=== PATIENT | female | born 1960 | race Caucasian/White ===

== ENCOUNTER 2016-08-05 20:46 | Inpatient (IN) ==
[2016-08-05] MEDS ORDERED: NS 1,000 ML IV ONE (21:38)
[2016-08-05] MEDS ORDERED: MORPHINE IV ONE (21:55)
[2016-08-05] MEDS ORDERED: ZOFRAN IV ONE (21:57)
[2016-08-05 22:03] LABS: MANUAL DIFF NEEDED? NO
[2016-08-05 22:06] LABS: BASO% 0.3 % (0.0-0.8); HEMATOCRIT 40.4 % (37.0-47.0); HEMOGLOBIN 13.7 g/dL (12.0-16.0); IMM GRAN# 0.02 X1000 (0.0-0.04); IMM GRAN% 0.2 % (0.0-0.5); LYMPH# 2.53 X1000 (1.2-3.4); LYMPH% 21.1 % (20.5-51.1); MCH 30.9 PG (27-31); MCHC 33.9 g/dL (33-37); MCV 91.2 FL (81-99); MONO# 0.64 X1000 (0.11-0.59); MONO% 5.3 % (1.7-9.3); NEUT% 73.1 % (42.2-75.2); PLT 280 X1000 (130-400); RBC 4.43 XMIL (4.2-5.4)
--- NOTE | 2016-08-05 22:13 | PROVIDER DOCUMENTATION ---
This chart was entered by Tasneem White Scribe, acting as scribe for Luis Collado MD. HPI-Abdominal Pain/GI Problem - General Chief Complaint: Diarrhea Stated Complaint: C DIF Time Seen by Provider: 08/05/16 21:06 Source: patient - History of Present Illness-ABD Nature of Presenting Problems: 55 Y/O F presents to ED with GI problems. Pt was sent her to be an admitted by . Pt was diagnosed with C-diff last week Thursday with no improvement even with prescribed Medication. Pt was diagnosed with Chron's a month and a halg ago. States that she has BM's 4x a day and 1 month of low grade fever. Severity in ED: reports: moderate Timing: reports: still present Associated Symptoms: reports: diarrhea, nausea. denies: fatigue, headaches, vomiting, trouble walking Last BM: this evening Review of Systems - Adult - REVIEW OF SYSTEMS - ADULT Constitutional: denies: chills, fever Eyes: reports: no symptoms reported Ears, Nose, Mouth & Throat: reports: no symptoms reported Cardiovascular: denies: chest pain Respiratory: denies: cough, shortness of breath Gastrointestinal: reports: diarrhea, nausea. denies: abdominal pain, vomiting Genitourinary: reports: no symptoms reported Musculoskeletal: reports: no symptoms reported Integumentary: reports: no symptoms reported Neurological: reports: no symptoms reported Psychiatric: reports: no symptoms reported Endocrine: reports: no symptoms reported Hematologic/Lymphatic: reports: no symptoms reported Allergic/Immunologic: reports: no symptoms reported All Other Systems: Reviewed and Negative Past History - Adult - PAST MEDICAL HISTORY-ADULT Review of Records: reports: Old Records Reviewed, Nursing Assessment Review, Medications Reviewed, Social history reviewed & non-contributory. Physical Exam-General - PHYSICAL EXAM-ADULT Initial Vital Signs Reviewed: Yes - CONSTITUTIONAL General Appearance: alert, no apparent distress - EYES Eyes: PERRL/EOMI, pink conjunctivae - HEAD, EARS, NOSE, MOUTH & THROAT HENMT: normocephalic/atraumatic, moist mucous membranes, normal ENT inspection, TMs normal, pharynx normal - NECK Neck: full range of motion, supple, normal inspection - RESPIRATORY Respiratory: chest non-tender, lungs clear, normal breath sounds - CARDIOVASCULAR Cardiovascular: normal peripheral pulses, regular rate, rhythm - GASTROINTESTINAL (ABDOMEN) Abdominal Exam: non tender, soft - LYMPHATIC Lymphatic: no adenopathy - MUSCULOSKELETAL Back Exam: normal inspection, no CVA tenderness, no vertebral tenderness Extremity: normal range of motion, non-tender - SKIN Integumentary: normal color, normal turgor - NEUROLOGIC Neurologic: grossly normal - PSYCHIATRIC Psych/Mental Status: normal mood/affect, normal thought content, normal thought process, oriented x 3 Progress - PLAN OF CARE/RESULTS Progress/Plan/Lab Results: Vital Signs - 8 hr 08/05/16 21:02 Pulse Rate 73 Respiratory Rate 18 Blood Pressure 156/93 O2 Sat by Pulse Oximetry 95 Orders Category Date Time Status C DIFF TOXIN [STOOL] Stat Lab 08/05/16 21:54 Uncollected CBC WITH ELECTRONIC DIFF [HEME] Stat Lab 08/05/16 21:38 Uncollected CMP [COMPREHENSIVE METABOLIC PANEL] [CHEM] Stat Lab 08/05/16 21:38 Uncollected LIPASE [CHEM] Stat Lab 08/05/16 21:38 Uncollected 0.9% Sodium Chloride Inj [Ns] 1,000 ml Med 08/05/16 21:38 Active IV 999 mls/hr Lactobacillus Rhamnosus GG [Culturelle] Med 08/06/16 09:00 Ordered 1 each PO BID Metronidazole 500 mg/Ns [Flagyl 500 mg/Ns] Med 08/05/16 21:45 Ordered 500 mg in 100 ml IV Q6H Vancomycin [Vancocin] Med 08/06/16 02:00 Ordered 125 mg PO Q6HR Result Diagrams: 08/05/16 21:40 - CONSULTS/PCP/HOSPITALIST Notification #1 *Consult/PCP/Hospitalist*: Time Discussed: 21:56 Reason/Comments: Admit Consult Disposition: Admit (Admit Accepted.) Departure - Departure Date of Disposition Decision: 08/05/16 Time of Disposition Decision: 22:13 DIAGNOSIS: C. difficile colitis Disposition: ADMITTED INPATIENT 09 Certified Medical Emergency: Emergent Condition: Good Referrals and Follow-Ups: Raya Molina MD [Primary Care Provider] - - Critical Care Note This patient required my direct & personal management of CC.: No This chart was documented by the indicated scribe, (Tasneem White Scribe) and accurately reflects the services I performed and decisions made by me, Luis Collado MD, as attested by the provider's signature.
[2016-08-05 22:25] LABS: AGAP 15; ALBUMIN 4.1 g/dL (3.5-5.0); ALKALINE PHOSPHATASE 58 U/L (32-104); BUN 11 mg/dL (8-22); CALCIUM 9.3 mg/dL (8.8-10.2); CHLORIDE 101 mmol/L (98-107); COSMO 282; GOT 10 U/L (10-30); GPT 12 U/L (10-36); LIPASE 23 U/L (13-60); POTASSIUM 3.9 mmol/L (3.5-5.1); SODIUM 142 mmol/L (136-145); TCO2 26 mmol/L (25-35); TOTAL BILIRUBIN 0.24 mg/dL (0.20-1.00); TOTAL PROTEIN 6.3 g/dL (6.3-8.3)
[2016-08-05] MEDS: FLAGYL 500 MG/NS 500 MG/100 ML IVPB IV SCH (22:25)
--- NOTE | 2016-08-05 22:44 | HISTORY AND PHYSICAL ---
CHIEF COMPLAINT: Diarrhea. HISTORY OF PRESENTING ILLNESS: A 55-year-old female, recent diagnosis of Crohn's. Apparently, had recent stool studies done by pack master Dr. Molina, which came back C. difficile positive. Subsequently, she was requested to go to the emergency department for admission. Patient states that she has been having persistent diarrhea for months to years, and recently she had a colonoscopy, which did show that she had Crohn's. Due to her presenting symptoms, the patient will need admission for further management. At the time of my examination, she had denied any headache, fever, chills, chest pain, shortness of breath, hemoptysis, or weight changes, but complained of persistent severe diarrhea. PAST MEDICAL HISTORY: Crohn's. PAST SURGICAL HISTORY: Cholecystectomy. ALLERGIES: Sulfa. CURRENT MEDICATIONS: As listed in the MAR. SOCIAL HISTORY: Smoking a pack of cigarettes for the past 4 years. Admits to social alcohol use. Denies any illicit drug use. FAMILY HISTORY: No history of coronary disease. REVIEW OF SYSTEMS: Twelve point review of systems is as in HPI. Other systems negative. PHYSICAL EXAMINATION: GENERAL: Cooperative, friendly female. She is resting comfortably now. VITAL SIGNS: Pulse 72, respiration 18, blood pressure 156/93. She is saturating 95%. HEENT: Atraumatic, normocephalic. Extraocular movements intact. PERRLA. NECK: Supple. CHEST: Clear to auscultation. CARDIOVASCULAR: Regular rhythm. ABDOMEN: Soft. Positive bowel sounds. EXTREMITIES: No edema. NEUROLOGIC: She is awake, alert, oriented x3. GENITOURINARY: No bladder distention. SKIN: Warm. LABORATORIES AND STUDIES: WBC 12.0, hemoglobin 13.7, hematocrit 40.4, platelets 280,000. ASSESSMENT: A 55-year-old female with a history of Crohn's, who was sent to the emergency department by her pack master for admission for further management of C. difficile colitis. 1. Diarrhea. 2. C. difficile colitis. 3. History of Crohn's. PLAN: 1. We will admit patient to medical floor. 2. We will keep patient n.p.o. 3. Start patient on IV Flagyl, and possibly then p.o. 4. We will consult Gastroenterology. 5. Will put patient on deep venous thrombosis prophylaxis with sequential compression devices. 6. We will continue to follow and reassess. cc: Yoni Escobedo MD
[2016-08-05] MEDS: VANCOCIN PO SCH (23:15)
[2016-08-06] MEDS ORDERED: ZOFRAN IV PRN (00:45)
[2016-08-06] MEDS: NS 1,000 ML IV SCH ×2 (01:25→13:45)
[2016-08-06] MEDS: FLAGYL 500 MG/NS 500 MG/100 ML IVPB IV SCH ×4 (03:15→21:14)
[2016-08-06] MEDS: VANCOCIN PO SCH ×3 (05:26→21:14)
[2016-08-06 06:41] LABS: MANUAL DIFF NEEDED? NO
[2016-08-06 06:51] LABS: BASO% 0.4 % (0.0-0.8); EOS# 0.09 X1000 (0.0-0.7); EOS% 0.8 % (0.0-10.0); HEMATOCRIT 35.7 % (37.0-47.0); HEMOGLOBIN 11.8 g/dL (12.0-16.0); LYMPH# 3.47 X1000 (1.2-3.4); LYMPH% 32.6 % (20.5-51.1); MCHC 33.1 g/dL (33-37); MCV 93.7 FL (81-99); MONO# 0.72 X1000 (0.11-0.59); MONO% 6.8 % (1.7-9.3); NEUT% 59.4 % (42.2-75.2); PLT 240 X1000 (130-400); RBC 3.81 XMIL (4.2-5.4)
[2016-08-06 07:08] LABS: AGAP 10; BUN 13 mg/dL (8-22); CALCIUM 7.9 mg/dL (8.8-10.2); CHLORIDE 106 mmol/L (98-107); COSMO 285; POTASSIUM 3.5 mmol/L (3.5-5.1); SODIUM 143 mmol/L (136-145); TCO2 27 mmol/L (25-35)
[2016-08-06] MEDS: CULTURELLE PO SCH ×2 (10:30→21:14)
--- NOTE | 2016-08-06 16:46 | PROGRESS NOTE ---
DATE: 08/06/2016 SUBJECTIVE: Patient reports feeling fine. Not nauseated, and from yesterday to today, she had yesterday 4 bowel movements and today only 1. No fever or chill reported. No abdominal pain. OBJECTIVE: Vital Signs: Temperature 97.8 degrees, heart rate 64, respiratory rate 20, blood pressure 134/85, O2 saturation 94% on room air. General Examination: This is a 55-year-old, female lying in bed, in no acute distress. HEENT: Head is normocephalic and atraumatic. Anicteric sclerae and pale conjunctivae. Mucous membranes moist. Neck: Supple. No JVD noted. No carotid bruits. No lymphadenopathy. No thyromegaly. Cardiovascular: S1, S2 heard. No murmurs, gallops, or rubs. Regular rate and rhythm. Respiratory: Clear bilaterally to auscultation. No work of breathing or using accessory muscles. Abdomen: Soft, nontender to palpation. Bowel sounds present. No organomegaly. Extremities: No clubbing, cyanosis, or edema. Peripheral pulses present in both legs. Neurological: Patient is alert and oriented x3. Able to move 4 extremities. Cranial nerves 2-12 grossly normal. LABORATORY DATA: Reviewed. ASSESSMENT: 1. Diarrhea secondary to Clostridium difficile colitis. 2. History of Crohn disease, recently diagnosed. PLAN: Patient has been admitted to the hospital because of a C. difficile colitis. Clinically this patient is responding to the treatment which is Flagyl and vancomycin oral. Now clinically he is improving because now she had 1 bowel movement. At this time, we are going to continue with the same management. If tomorrow the patient does not have any bowel movement and she is tolerating p.o. medications and food, we may let her go. cc: Linus Nascimento MD
[2016-08-06] MEDS: CARAFATE PO SCH (21:14)
[2016-08-06] MEDS: DEPAKOTE PO SCH (21:14)
[2016-08-06] MEDS: WELLBUTRIN SR PO SCH (21:29)
[2016-08-07] MEDS: NS 1,000 ML IV SCH ×5 (01:30→14:08)
[2016-08-07] MEDS: FLAGYL 500 MG/NS 500 MG/100 ML IVPB IV SCH ×4 (03:30→23:02)
[2016-08-07] MEDS: VANCOCIN PO SCH ×5 (03:30→23:01)
--- NOTE | 2016-08-07 06:11 | CONSULTATION ---
DATE OF CONSULTATION: 08/06/2016 REFERRING PHYSICIAN: Linus Nascimento M.D. INDICATION FOR CONSULTATION: 1. Diarrhea. 2. C. difficile. HISTORY OF PRESENT ILLNESS: The patient is a 55-year-old, white female who is followed in our clinic. She has Crohn's disease. She recently presented with greater than 10- 15 watery bowel movements per day. Her stool studies were positive for C. difficile toxin per her PCP. She was placed on oral Flagyl and a probiotic. However, she continued to have severe abdominal cramping, nausea and more than 10 bowel movements per day after 3 days of oral Flagyl. She presented to the emergency room with decreased p.o. intake, nausea, diarrhea and mild dehydration. From a GI perspective, she has had diarrhea for years that was 1-2 bowel movements per day. She recently underwent a colonoscopy that was remarkable for ileal colitis. Her biopsies are consistent with Crohn's disease. She denies chest pain, shortness of breath, vomiting or headache. She notes mild abdominal discomfort that has persisted. Overnight, she was placed on IV Flagyl and oral vancomycin. Her stool frequency has decreased for more than 10 bowel movements per day to 3. However, she continues to have watery diarrhea with each time she urinates. She reports that she is hungry today for the first time. PAST MEDICAL HISTORY: 1. Crohn's. 2. C. difficile colitis. 3. Gastroesophageal reflux disease. 4. Gastritis. 5. Hiatal hernia. 6. Gastric polyps. 7. Ileal colitis consistent with Crohn's disease. 8. Possible irritable bowel syndrome. 9. Vitamin B12 deficiency. 10. Vitamin D deficiency. PAST SURGICAL HISTORY: Cholecystectomy. MEDICATION ALLERGIES: Sulfa. HOME MEDICATIONS: 1. Carafate. 2. Prednisone. 3. Omeprazole. 4. Duloxetine. 5. Depakote. 6. Bupropion. SOCIAL HISTORY: Remarkable in that she has smoked 1 pack of cigarettes for the last 4 days. She uses alcohol on a social basis. She denies illicit drug use. FAMILY HISTORY: Negative for coronary artery disease and colon cancer. PHYSICAL EXAMINATION: GENERAL: On exam, she is in no acute distress. Vital Signs: Remarkable for a blood pressure of 134/85, pulse 64, respiration 20, temperature of 97.8 degrees. HEENT: Her conjunctiva are pink. Her sclerae are anicteric and her oropharyngeal mucosa membranes are unremarkable. Lungs: Clear to auscultation with normal respiratory effort. Cardiovascular: Exam reveals regular rate and rhythm with no murmurs, gallops, or rubs. Abdominal: Exam reveals normoactive bowel sounds. The abdomen is soft, with minimal abdominal tenderness. Extremities: Bilaterally are negative for cyanosis, clubbing, or edema. OBJECTIVE DATA: Reveals a hemoglobin of 11.8 with hematocrit of 35.7, and a white count of 10.64. This is an interval improvement from a white count of 12,0 on admission. She has 240,000 platelets. Sodium is 143, potassium 3.5, chloride 106, CO2 27, BUN 13, creatinine 0.7, and a glucose of 100 with a calcium of 7.9. On July 01, her vitamin B12 was 216, vitamin D is 17.9, and folic acid 10.7. Her TSH on 08/06/2016 is 3.37. IMPRESSION: 1. C. difficile colitis. 2. Crohn's disease. 3. Vitamin B12 deficiency. 4. Vitamin D deficiency. RECOMMENDATION: 1. Continue vancomycin and Flagyl. 2. I would advance her diet. 3. Because the patient continues to have tenesmus despite the decreasing episodes of diarrhea, I do not think she is ready for discharge tomorrow. She may need an additional 24 hours of IV fluids and IV antibiotics. I will consider additional anti-inflammatory treatment pending her test results. Continue prednisone for now. 4. From a Crohn's disease standpoint, I will check a CRP in the morning. 5. I will also check a CBC as her hemoglobin has dropped slightly over the last 24 hours. 6. I anticipate that she should be able to be discharged no later than Thursday barring any other unforeseen complications. cc: MD Linus Tineo MD MTDD
[2016-08-07] MEDS: CARAFATE PO SCH ×4 (06:19→23:01)
[2016-08-07 06:36] LABS: MANUAL DIFF NEEDED? NO
[2016-08-07 06:46] LABS: BASO% 0.3 % (0.0-0.8); EOS# 0.14 X1000 (0.0-0.7); EOS% 1.3 % (0.0-10.0); HEMATOCRIT 38.2 % (37.0-47.0); HEMOGLOBIN 12.7 g/dL (12.0-16.0); IMM GRAN# 0.02 X1000 (0.0-0.04); IMM GRAN% 0.2 % (0.0-0.5); LYMPH# 2.26 X1000 (1.2-3.4); MCH 31.1 PG (27-31); MCHC 33.2 g/dL (33-37); MCV 93.6 FL (81-99); MONO% 5.6 % (1.7-9.3); MPV 10.9 FL (7.4-10.4); NEUT% 71.6 % (42.2-75.2); PLT 240 X1000 (130-400); RBC 4.08 XMIL (4.2-5.4)
[2016-08-07 07:09] LABS: AGAP 11; BUN 9 mg/dL (8-22); CALCIUM 8.5 mg/dL (8.8-10.2); CHLORIDE 103 mmol/L (98-107); COSMO 283; POTASSIUM 3.6 mmol/L (3.5-5.1); SODIUM 142 mmol/L (136-145); TCO2 28 mmol/L (25-35)
[2016-08-07] MEDS: DEPAKOTE PO SCH ×2 (08:20→23:01)
[2016-08-07] MEDS: PREDNISONE PO SCH (08:21)
[2016-08-07] MEDS: WELLBUTRIN SR PO SCH ×2 (08:21→23:01)
[2016-08-07] MEDS: PRILOSEC PO SCH (08:21)
[2016-08-07] MEDS: CULTURELLE PO SCH ×2 (08:21→23:01)
[2016-08-07] MEDS: CYMBALTA PO SCH (08:21)
[2016-08-07] MEDS ORDERED: CARAFATE PO SCH (09:00)
--- NOTE | 2016-08-07 17:09 | PROGRESS NOTE ---
DATE: 08/07/2016 SUBJECTIVE: The patient is still complaining of diarrhea. She says she has had 5 bowel movements today. Only thing recorded was. OBJECTIVE: Vital signs: Blood pressure 113/60, heart rate 67, respiratory rate 18, temperature 98.2 degrees. Cardiovascular: Regular rate and rhythm. Pulmonary: Bilateral breath sounds. Clear to auscultation. GI: Soft, nontender, nondistended. Bowel sounds are positive. LABORATORY DATA: White count 10, hemoglobin and hematocrit 12 and 38, platelets of 240,000. CMP was normal. PROBLEM LIST: 1. Clostridium difficile colitis. We will continue vancomycin and Flagyl and follow closely. 2. Crohn's, recent diagnosis. The patient is uncertain if she truly has Crohn's. We are getting treatment. Her biopsies showed active colitis with crypt abscesses, that was from June, which could be inflammatory bowel disease. But at this point, I will defer treatment plan per Dr. Molina. Patient is already on prednisone which has been decreased because of her infection. We are just going to give her some Asacol. That is probably not going to cause any issues so we will continue that and follow closely. 3. Disposition. When clinically stabilized likely home, hopefully within the next 24 hours. cc: Ko Hyatt MD
[2016-08-07] MEDS: ASACOL HD PO SCH (19:04)
--- NOTE | 2016-08-07 20:37 | PROGRESS NOTE ---
DATE: 08/07/2016 SUBJECTIVE: The patient states that she feels better today. She reports only 1 episode of abdominal pain overnight. However, she has had 5 large volume watery diarrhea stools. She notes that her stool frequency is actually worse than when she was at home, but her C. difficile toxin has returned negative. She continues to have white blood cells in her stool as noted by positive lactoferrin. Her appetite is slightly better. She was placed on Asacol by the primary team for her acute colitis noted on endoscopy. OBJECTIVE: Vital signs: On exam, her blood pressure is 140/72, pulse 71, respiration 20, temperature of 98.3 degrees. Abdomen: Soft and nontender. LABORATORY DATA: Reveals a hemoglobin of 12.7, hematocrit of 38.2 and white count of 10.78 with 240,000 platelets. Sodium is 142, potassium 3.6, chloride 103, CO2 28, BUN 9, creatinine 0.7 with a glucose 113. Calcium is 8.5. Her iron is 38 with a ferritin of 41. Her CRP is 3.99. IMPRESSION: 1. Clostridium difficile colitis. 2. Ileocolitis consistent with Crohn's disease on endoscopy. 3. Iron deficiency anemia. 4. Vitamin B12 deficiency. 5. Vitamin D deficiency. 6. Continue vancomycin and Flagyl. 7. Continue gastrointestinal soft diet. 8. Consider repeat Clostridium difficile toxin if her diarrhea continues to worsen. 9. Continue Culturelle. 10. The patient had evidence of ileocolitis on endoscopy and on biopsy. The Asacol will only address the colonic issues. It does not address the small bowel lesions. However, the patient is on prednisone and is unable to start anti TNF therapy until her infection resolves. Therefore, it is reasonable to continue the Asacol pending resolution of her infection. 11. If the patient's crampy abdominal pain persists, one can consider a course of Levsin 0.125 mg sublingual. 12. Continue prednisone at 30 mg per day at this time. We will continue her taper next week, reducing her dose to 25 mg per day. 13. Continue Anusol HC per rectum twice a day for 7 days and then stop. 14. Continue Carafate for the gastroenteritis for a total of 12 weeks. cc: MD Ko Tineo MD MTDD
[2016-08-07] MEDS: ANUSOL-HC CREAM PR SCH (23:01)
[2016-08-08] MEDS: NS 1,000 ML IV SCH ×3 (02:26→15:40)
[2016-08-08] MEDS: FLAGYL 500 MG/NS 500 MG/100 ML IVPB IV SCH ×4 (03:46→22:39)
[2016-08-08] MEDS: VANCOCIN PO SCH ×4 (03:46→22:39)
[2016-08-08] MEDS: CARAFATE PO SCH ×4 (06:32→22:39)
[2016-08-08 07:36] LABS: AGAP 11; BUN 13 mg/dL (8-22); CHLORIDE 104 mmol/L (98-107); COSMO 285; POTASSIUM 3.6 mmol/L (3.5-5.1); SODIUM 143 mmol/L (136-145); TCO2 28 mmol/L (25-35)
[2016-08-08] MEDS: WELLBUTRIN SR PO SCH ×3 (07:55→22:39)
[2016-08-08] MEDS: DEPAKOTE PO SCH ×3 (07:55→22:39)
[2016-08-08] MEDS: PREDNISONE PO SCH ×2 (07:55→07:59)
[2016-08-08] MEDS: PRILOSEC PO SCH ×2 (07:55→08:00)
[2016-08-08] MEDS: ANUSOL-HC CREAM PR SCH ×3 (07:55→22:38)
[2016-08-08] MEDS: ASACOL HD PO SCH ×4 (07:55→22:39)
[2016-08-08] MEDS: CYMBALTA PO SCH ×2 (07:55→07:59)
[2016-08-08] MEDS: CULTURELLE PO SCH ×3 (07:55→22:39)
--- NOTE | 2016-08-08 14:06 | PROGRESS NOTE ---
DATE: 08/08/2016 SUBJECTIVE: The patient has no focal complaints. OBJECTIVE: Blood pressure 146/86, heart rate 74, respiratory rate 16, temperature 98.3 degrees, 98% on room air.Cardiovascular: Regular rate and rhythm. Pulmonary: Bilateral breath sounds. Clear to auscultation. GI: Soft, nontender, nondistended. Bowel sounds are positive. LABORATORY DATA: CMP is normal today. PROBLEM LIST: 1. Clostridium difficile colitis. Clinically, she is improving finally on vancomycin and Flagyl. Probably anticipate discharging her on vancomycin for a total of 2 weeks. She is on day 4 of treatment. 2. Crohn's exacerbation. She is on prednisone. I started Asacol yesterday. I have noted Dr. Molina's notation that she has ileal colitis. I was under the impression she had colonic involvement but we are going to leave her on Asacol right now just because she is not a candidate for immune modulating therapy with her active infection. DISPOSITION: Anticipate discharge tomorrow if stable. cc: Ko Hyatt MD
--- NOTE | 2016-08-08 16:30 | PROGRESS NOTE ---
DATE: 08/08/2016 SUBJECTIVE: The patient states that she has only had 2 bowel movements today. The nocturnal diarrhea has resolved. She reports less abdominal cramps, and notes an increase in her appetite. She just laid down to sleep and therefore no exam was performed. VITALS: Remained stable with a blood pressure of 146/86, pulse 74, respirations 16, temperature of 98.3. OBJECTIVE LAB DATA: She is remarkable for sodium of 143, potassium 3.6, chloride 104, CO2 of 28, BUN 13, creatinine 0.6 with a glucose of 93 and a calcium of 8.0. RECOMMENDATION: 1. Continue antibiotics for C. difficile colitis. 2. Continue Asacol for the acute colitis. Please note that once her infection is cleared, we will transition her to either Humira or Remicade therapy. 3. Continue prednisone, which I will taper as an outpatient. 4. Continue omeprazole. 5. Continue Carafate. 6. Continue Culturelle. 7. Once her stools have become formed, I will begin the steroid taper. 8. The patient has appointment in our office on August 25. We will plan to see her at that time. When she goes home, I ask that she call our office within 1-2 weeks. cc: MD Ko Tieno MD MTDD
[2016-08-09] MEDS: FLAGYL 500 MG/NS 500 MG/100 ML IVPB IV SCH ×4 (04:05→22:14)
[2016-08-09] MEDS: VANCOCIN PO SCH ×3 (04:05→17:42)
[2016-08-09] MEDS: CARAFATE PO SCH ×2 (06:09→10:29)
[2016-08-09 07:01] LABS: HEMATOCRIT 36.2 % (37.0-47.0); MCH 31.3 PG (27-31); MCHC 33.1 g/dL (33-37); MCV 94.3 FL (81-99); MPV 10.8 FL (7.4-10.4); RBC 3.84 XMIL (4.2-5.4)
[2016-08-09 07:13] LABS: AGAP 12; BUN 10 mg/dL (8-22); CALCIUM 8.2 mg/dL (8.8-10.2); CHLORIDE 104 mmol/L (98-107); COSMO 284; POTASSIUM 3.4 mmol/L (3.5-5.1); SODIUM 143 mmol/L (136-145); TCO2 27 mmol/L (25-35)
[2016-08-09] MEDS: WELLBUTRIN SR PO SCH ×2 (08:16→22:14)
[2016-08-09] MEDS: CYMBALTA PO SCH (08:16)
[2016-08-09] MEDS: DEPAKOTE PO SCH ×2 (08:16→22:14)
[2016-08-09] MEDS: PRILOSEC PO SCH (08:16)
[2016-08-09] MEDS: ASACOL HD PO SCH ×3 (08:16→17:42)
[2016-08-09] MEDS: ANUSOL-HC CREAM PR SCH ×2 (08:17→22:14)
[2016-08-09] MEDS: PREDNISONE PO SCH (08:17)
[2016-08-09] MEDS: CULTURELLE PO SCH ×2 (08:17→22:14)
[2016-08-09] MEDS: NS 1,000 ML IV SCH (10:29)
[2016-08-09] MEDS ORDERED: KLOR-CON PO ONE (10:48)
--- NOTE | 2016-08-09 15:02 | PROGRESS NOTE ---
DATE: 08/09/2016 SUBJECTIVE: The patient is still having some diarrhea, but she is overall improved. OBJECTIVE: Vital Signs: Blood pressure 137/82, heart rate 71, respiratory rate 18, temperature 98.1 degrees, satting 98% on room air. Cardiovascular: Regular rate and rhythm. Pulmonary: Bilateral breath sounds. Clear to auscultation. GI: Soft, nontender, nondistended. Bowel sounds are positive. LABORATORY DATA: Potassium 3.4, but white count is normal. PROBLEMS: 1. Clostridium difficile colitis. We will increase her vancomycin and continue Flagyl and follow. 2. Crohn exacerbation. She is on prednisone and Asacol for the time being. I am going to add a little bit of cholestyramine and stop her Carafate just from this standpoint I am not sure if this may be contributing somewhat to her diarrhea. 3. Hypokalemia. Will supplement and follow. DISPOSITION: Hopefully can discharge tomorrow if stabilized. cc: Ko Hyatt MD
[2016-08-09] MEDS: QUESTRAN PO SCH ×2 (15:59→22:14)
[2016-08-10] MEDS: FLAGYL 500 MG/NS 500 MG/100 ML IVPB IV SCH ×4 (04:34→21:19)
[2016-08-10 07:06] LABS: AGAP 11; BUN 10 mg/dL (8-22); CALCIUM 8.4 mg/dL (8.8-10.2); CHLORIDE 102 mmol/L (98-107); COSMO 280; POTASSIUM 3.6 mmol/L (3.5-5.1); SODIUM 141 mmol/L (136-145); TCO2 28 mmol/L (25-35)
[2016-08-10] MEDS: PREDNISONE PO SCH (09:26)
[2016-08-10] MEDS: PRILOSEC PO SCH (09:26)
[2016-08-10] MEDS: VANCOCIN PO SCH ×3 (09:26→17:38)
[2016-08-10] MEDS: CULTURELLE PO SCH ×2 (09:26→17:38)
[2016-08-10] MEDS: WELLBUTRIN SR PO SCH ×2 (09:26→21:19)
[2016-08-10] MEDS: QUESTRAN PO SCH ×2 (09:26→09:29)
[2016-08-10] MEDS: DEPAKOTE PO SCH ×2 (09:26→21:19)
[2016-08-10] MEDS: ASACOL HD PO SCH ×3 (09:26→17:38)
[2016-08-10] MEDS: CYMBALTA PO SCH (09:26)
[2016-08-10] MEDS: ANUSOL-HC CREAM PR SCH ×2 (09:27→21:18)
[2016-08-10] MEDS: DIFICID PO SCH ×2 (17:38→21:18)
--- NOTE | 2016-08-10 18:29 | PROGRESS NOTE ---
DATE: 08/10/2016 SUBJECTIVE: The patient has no focal complaints. OBJECTIVE: Vital Signs: Blood pressure 144/77, heart rate of 80, respiratory rate 18, temperature 98 degrees. Cardiovascular: Regular rate and rhythm. Pulmonary: Bilateral breath sounds. Clear to auscultation. Gastrointestinal: Soft, nontender, nondistended. Bowel sounds are positive. LABORATORY DATA: Basic was normal. PROBLEM LIST: 1. Clostridium difficile colitis. She is still having a lot of diarrhea, probably 6 episodes yesterday, two today. I am going to add Dificid on top of her vancomycin and Flagyl. Probably get Infectious Disease consult and follow. 2. Crohn's exacerbation. She is on Asacol and prednisone. Continue to follow. I am not sure, we may want to bump up her prednisone a little bit. We will see what Dr. Raya Molina says tomorrow. 3. Anxiety and depression. Appears to be stable. 4. Hypokalemia. Has resolved. We will continue to monitor. Hopefully, can discharge tomorrow if she stabilizes. She is not tolerating the Questran, so I am going to stop that for right now. cc: Ko Hyatt MD
[2016-08-11] MEDS: FLAGYL 500 MG/NS 500 MG/100 ML IVPB IV SCH ×2 (04:42→09:24)
[2016-08-11 07:20] LABS: HEMATOCRIT 40.6 % (37.0-47.0); HEMOGLOBIN 13.5 g/dL (12.0-16.0); MCH 30.8 PG (27-31); MCHC 33.3 g/dL (33-37); MCV 92.5 FL (81-99); RBC 4.39 XMIL (4.2-5.4)
[2016-08-11 07:21] LABS: AGAP 14; BUN 13 mg/dL (8-22); CALCIUM 9.1 mg/dL (8.8-10.2); CHLORIDE 100 mmol/L (98-107); COSMO 285; POTASSIUM 4.1 mmol/L (3.5-5.1); SODIUM 143 mmol/L (136-145); TCO2 29 mmol/L (25-35)
[2016-08-11] MEDS: ASACOL HD PO SCH ×3 (08:35→16:19)
[2016-08-11] MEDS: ANUSOL-HC CREAM PR SCH ×2 (08:35→20:53)
[2016-08-11] MEDS: CULTURELLE PO SCH ×3 (08:36→16:19)
[2016-08-11] MEDS: DIFICID PO SCH (08:36)
[2016-08-11] MEDS: DEPAKOTE PO SCH ×2 (08:36→20:52)
[2016-08-11] MEDS: CYMBALTA PO SCH (08:36)
[2016-08-11] MEDS: WELLBUTRIN SR PO SCH ×2 (08:37→20:52)
[2016-08-11] MEDS: PREDNISONE PO SCH (08:37)
[2016-08-11] MEDS: PRILOSEC PO SCH (08:37)
[2016-08-11] MEDS: VANCOCIN PO SCH ×3 (09:24→16:19)
[2016-08-11] MEDS ORDERED: ENTOCORT EC PO ONE (11:45)
[2016-08-11] MEDS ORDERED: PREDNISONE PO ONE (11:46)
[2016-08-11] MEDS ORDERED: PREDNISONE PO SCH (11:47)
[2016-08-11] MEDS ORDERED: SOLU-MEDROL IV SCH (23:45)
--- NOTE | 2016-08-12 03:37 | PROGRESS NOTE ---
DATE: 08/11/2016 SUBJECTIVE: The patient states that she is continuing to have large volume and watery diarrhea. She actually was incontinent of stool when she coughed while she was in the shower. She notes worsening abdominal cramps and discomfort. She denies nausea with vomiting, but reports new epigastric discomfort or dyspepsia. She is concerned because she continues to have diarrhea. She notes that her dose of prednisone was recently increased from 25 mg per day to 40 mg per day. She is currently receiving Dificid, vancomycin, and Flagyl. She was evaluated by Dr. Elver Rutledge, who feels that there is currently no evidence of a C. difficile infection based on the fact that her antigen and toxins are negative, although she was antigen positive in the past, with a preceding negative stool antigen. Her endoscopy was remarkable for ileal and colonic ulcerations, consistent with Crohn's disease. PHYSICAL EXAMINATION: General: She is in no acute distress. Vital Signs: Her blood pressure is 122/69, pulse 86, respirations 16, temperature of 98.2 degrees. HEENT: Negative. Lungs: Lungs are clear to auscultation, with normal respiratory effort. Cardiovascular: Regular rate and rhythm, with no murmurs, gallops, or rubs. Abdominal: Mild diffuse tenderness, with no rebound or guarding. She has normoactive bowel sounds. OBJECTIVE DATA: Hemoglobin of 13.5, with hematocrit of 40.6, and white count of 9.82. She has 282,000 platelets. Sodium 143, potassium 4.1, chloride 100, CO2 29, BUN 13, creatinine 0.7, with a glucose of 98. Calcium is 9.1, and CRP is 3.16. IMPRESSION: 1. Probable C. difficile colitis, status post treatment with eradication. Her stool studies are now negative. 2. Enterocolitis, consistent with Crohn's disease. 3. Refractory diarrhea. 4. Diffuse abdominal discomfort. 5. Gastroesophageal reflux disease. 6. Erosive gastroduodenitis on previous esophagogastroduodenoscopy. 7. Leukocytosis on admission, resolved. 8. Iron deficiency anemia. RECOMMENDATIONS: 1. Because of the failure of the patient to improve, I will obtain a CT scan of the abdomen and pelvis with IV and oral contrast. 2. Although the patient does not have positive toxins now, she has had a persistent leukocytosis that resolved with antibiotics. Therefore, I would complete a 10-day course of antibiotics and stop. Her fecal calprotectin was consistent with acute inflammatory changes, but her stool pH was within normal limits. 3. The patient's fecal calprotectin and biopsies are still consistent with Crohn's disease. However, we are still unable to rule out noninflammatory causes. Her fecal calprotectin is 72. 4. The patient has had minimal response to antibiotics. She has had minimal response to increasing her prednisone and adding Dificid to Flagyl and vancomycin. Although her fecal calprotectin is elevated, it may be reasonable to consider holding all therapies, with the exception of the prednisone and Asacol, and reassessing. This will depend on the results on the CT scan. 5. Continue the Anusol HC suppository twice a day for her inflamed hemorrhoids. 6. Continue Prilosec for the treatment of her gastroenteritis. 7. Additional recommendations to follow based on the results of her CT scan. cc: MD Ko Tineo MD
--- NOTE | 2016-08-12 08:51 | Diag Imaging Result Doc PS360 ---
EXAM: ABDOMEN/PELVIS W/CONTRAST HISTORY: refractory diarrhea, abd cramps TECHNIQUE: CT of the abdomen with intravenous and oral contrast and dose reduction (clarity.) COMMENT: The appearance of the visualized portions of the lungs is unremarkable and unchanged since 10/23/2015. There is no evidence of abdominal aortic aneurysm. Some fullness of the collecting systems is present in both kidneys particularly the upper pole calyces and there is at least one stone visible in the left upper pole measuring 5 mm in diameter. There is been cholecystectomy. The spleen and adrenal glands are within normal limits. The pancreas is unremarkable. The liver is within normal limits otherwise. There is no evidence of significant adenopathy. The small bowel is not distended and the stomach is not distended. Some fluid is present with gas throughout the colon. CT of the pelvis with intravenous and oral contrast: The appendix is not distended. There is fluid and some fecal debris in the rectum. The urinary bladder is not distended. There is an apparent 17 mm right ovarian cyst. There is no significant free fluid. There are degenerative disc changes at the L5-S1 level and there may be some foraminal stenosis on the left this level. IMPRESSION: 1. Fluid in the colon which would be consistent with enterocolitis. 2. Nephrolithiasis particularly on the left. 3. Right ovarian cyst. Electronically signed by Andres De Leon 08/12/2016 8:49 AM
[2016-08-12] MEDS: VANCOCIN PO SCH ×3 (09:38→17:24)
[2016-08-12] MEDS: ASACOL HD PO SCH ×3 (09:38→17:24)
[2016-08-12] MEDS: CYMBALTA PO SCH (09:38)
[2016-08-12] MEDS: PRILOSEC PO SCH (09:38)
[2016-08-12] MEDS: DEPAKOTE PO SCH ×2 (09:38→20:51)
[2016-08-12] MEDS: WELLBUTRIN SR PO SCH ×2 (09:38→20:51)
[2016-08-12] MEDS: CULTURELLE PO SCH ×3 (09:38→17:25)
[2016-08-12] MEDS: ANUSOL-HC CREAM PR SCH ×2 (09:40→20:51)
[2016-08-12] MEDS ORDERED: IMODIUM PO ONE (13:20)
--- NOTE | 2016-08-12 13:37 | PROGRESS NOTE ---
DATE: 08/12/2016 Today Ms. Spencer refers to be doing fine. She had 4 bowel movements for the day. None of them has blood in it. OBJECTIVE: Vital signs: Blood pressure is 116/74, pulse of 82, respirations 15 , temperature 97.9 degrees. General: Ms. Spencer is a 56-year-old female. She is in bed , no distress. HEENT: Mucosa is pink and moist. Anicteric. Acyanotic. Neck: Supple. Chest : Clear. Cardiovascular: Regular rate and rhythm. Abdomen: Soft, nontender. Bowel sounds are present. Extremities: No pedal edema. PSYCHIATRIC NURSE: Patient is alert and oriented x4. There is no focal neurological deficit. IMAGING STUDIES: Done yesterday shows enteric colitis, nephrolithiasis particularly on the left. Right ovarian cyst. ASSESSMENT: 1. C. difficile colitis improved. 2. Chronic diarrhea. Etiology apparently not clear. Patient is being treated apparently for inflammatory bowel disease on Asacol and prednisone by her GI specialist. 3. Anxiety and depression. 4. Suspected irritable bowel syndrome, will differ recommendation to her GI specialist. The patient is currently on IV prednisolone and the p.o. vancomycin. We are going to be coming down on the IV Solu-Medrol in anticipation of patient being discharged tomorrow. cc: Andrea Padilla MD MTDDeepika
[2016-08-12] MEDS ORDERED: LEVSIN-SL SL ONE (20:39)
[2016-08-12] MEDS: NORCO-7.5 PO PRN (21:55)
[2016-08-12] MEDS: LOMOTIL PO PRN (21:56)
[2016-08-13] MEDS: NORCO-7.5 PO PRN ×2 (07:39→13:11)
[2016-08-13] MEDS: LOMOTIL PO PRN ×2 (07:39→13:11)
[2016-08-13] MEDS ORDERED: PREDNISONE PO SCH (09:00)
[2016-08-13] MEDS: ASACOL HD PO SCH ×2 (09:31→13:06)
[2016-08-13] MEDS: VANCOCIN PO SCH ×2 (09:31→13:06)
[2016-08-13] MEDS: DEPAKOTE PO SCH (09:31)
[2016-08-13] MEDS: WELLBUTRIN SR PO SCH (09:31)
[2016-08-13] MEDS: CYMBALTA PO SCH (09:31)
[2016-08-13] MEDS: PRILOSEC PO SCH (09:31)
[2016-08-13] MEDS: CULTURELLE PO SCH ×2 (09:32→13:05)
[2016-08-13] MEDS: LEVSIN-SL SL SCH ×2 (09:38→13:06)
[2016-08-13] MEDS: ANUSOL-HC CREAM PR SCH (09:38)
[2016-08-13 14:55] VITALS: BP 134/86
[2016-08-13] MEDS ORDERED: ZOFRAN PO SCH (15:00)
--- NOTE | 2016-08-13 23:55 | PROGRESS NOTE ---
DATE: 08/13/2016 SUBJECTIVE: The patient continues to have diarrhea. She reports that her main concern is the abdominal cramping. It is significant to note that since she has received treatment with antibiotics, she is no longer having nocturnal diarrhea or fecal incontinence. She remains on oral vancomycin and corticosteroids. OBJECTIVE DATA: Blood pressure 127/76, pulse of 88, respirations 17, temperature of 98.0. On abdominal exam, she has normoactive bowel sounds. There is mild diffuse tenderness, but no rebound or guarding. RECOMMENDATIONS: 1. Clinically, the patient has improved since she has received a course of antibiotics. Although her diarrhea has improved, it persists. Therefore, I would continue the prednisone and the Asacol, as she has documented enterocolitis on CT scan and on biopsy. While her diagnosis is consistent with inflammatory bowel disease such as Crohn's disease, it is not diagnostic. 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 2. The patient has crampy abdominal discomfort. It is unclear if this is a postinfectious functional bowel or irritable bowel syndrome. Therefore, I will begin Levsin 0.125 mg sublingual 4 times a day in an effort to reduce her abdominal spasms. 3. She has a Yersinia culture pending. Once we receive a negative culture, I will begin her Humira therapy. 4. If she continues to have diarrhea despite appropriate treatment, we will consider re- evaluation, either endoscopically, or in consultation with inflammatory bowel disease specialists at [facility]. I have discussed her care with my GI colleagues at [facility], and they are in agreement with our current treatment plan. 5. From a GI perspective, it would be reasonable to discharge the patient to home in the morning for outpatient management. cc: MD Raya Rodrigez MD
[2016-08-14] MEDS ORDERED: IMODIUM PO SCH (09:00)
--- NOTE | 2016-08-14 12:07 | DISCHARGE SUMMARY ---
ADMISSION DATE: 08/05/2016 DISCHARGE DATE: 08/13/2016 DISPOSITION: Home. FOLLOWUP: Follow up will be: 1. Dr. Jose Mijares, his PCP. 2. Dr. Rutledge. 3. Dr. Molina. ADMISSION DIAGNOSES: 1. Diarrhea. 2. Clostridium difficile colitis. 3. History of Crohn's. DISCHARGE DIAGNOSES: 1. Clostridium difficile colitis, improved. 2. Chronic diarrhea, etiology unclear. 3. Suspected inflammatory bowel disease 4. Questionable irritable bowel syndrome with Diarrhea component. 5. Anxiety and depression. DISCHARGE MEDICATIONS: 1. Prednisone 30 mg daily. 2. Bupropion 150 b.i.d. 3. Omeprazole 40 mg daily. 4. Depakote 250 b.i.d. 5. Duloxetine 60 mg daily. 6. Sucralfate 1 g p.o. q.4 h. 7. Lactobacillus. 8. Mesalamine 800 three times per day. 9. Loperamide 2 mg daily. 10. Zofran 4 mg q.6 h. IMAGING STUDIES OF SIGNIFICANCE: A CT scan of the abdomen and pelvis was done which shows fluid in the colon which would be consistent with enterocolitis, nephrolithiasis, and right ovarian cyst. PRESENTING COMPLAINT: Diarrhea. HISTORY OF PRESENTING COMPLAINT: Ms. 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 She was about to start on Humira for presumption of Crohn disease. However, her diarrhea got worse, and stool samples were done and showed C. difficile antigen positive but no toxin. She was presumed to have C. difficile infection so was admitted for therapy. HOSPITAL COURSE: During the hospital stay, the patient was treated with antibiotics. Dr. Rutledge saw the patient, and in consultation with her GI it was decided that antibiotics should be stopped when patient's diarrhea improved. A CT scan of the abdomen and pelvis was done. All that was seen was what was listed above with some fluid in the colon but no wall abnormality. This was interpreted to be enterocolitis. The patient's bowel movements improved from 10 to 15 per day to just about 4, and she did not have any more abdominal pain, no fever, no rash, and not any other extraintestinal manifestations of IBD. The patient was subsequently discharged upon consultation with her GI, and she will follow up with her GI doctor, Dr. Molina, and also Infectious Disease, Dr. Rutledge. There is a plan for patient to see the IBD staff in [facility] for further stratification of her disease At the time of discharge, there had been some lab work that Dr. Molina sent to [facility], and they are still pending, including calprotectin, the pH of the stool, and Yersinia culture. The patient will review this with Dr. Molina upon followup visit. Time spent for discharge was 37 minutes. cc: Andrea Padilla MD [facility]PITALDeepika
== END 2016-08-13 16:00 | disposition home or self-care (01) ==
LOC: ED 20:46 → EDIPHOLD 22:50 → SUATTDRO 22:50 → 3N 08-06 11:41
PROVIDERS: ATTEND Internal Medicine